=== PATIENT | female | born 1960 | race Caucasian/White ===

== ENCOUNTER → 2024-04-30 09:25 | Outpatient (REF) | payer OTHER, SELFPAY | LOC: HWRAD 09:25 | PROVIDERS: ATTENDING PHYSICIAN Nurse Practitioner Family | DX: M81.0 Age-related osteoporosis without current pathological fracture (principal) | CPT/HCPCS: 77080 ==

== ENCOUNTER → 2024-09-24 06:34 | Day surgery (SDC) | payer MEDICARE, OTHER, SELFPAY | LOC: GI 06:34 | PROVIDERS: ATTENDING PHYSICIAN Internal Medicine Gastroenterology | DX: Z12.11 Encounter for screening for malignant neoplasm of colon (principal); K62.1 Rectal polyp | CPT/HCPCS: 45385; 88305 ==

== ENCOUNTER → 2025-01-26 14:40 | Outpatient (REF) | payer MEDICARE, OTHER, SELFPAY | LOC: WDC 14:40 | PROVIDERS: ATTENDING PHYSICIAN Surgery; FAMILY PHYSICIAN Family Medicine | DX: R22.31 Localized swelling, mass and lump, right upper limb (principal) | CPT/HCPCS: 76642 ==